=== PATIENT | female | born 1965 | race Caucasian/White ===

== ENCOUNTER 2024-04-20 00:48 | Inpatient (IN) | payer MEDICARE, OTHER ==
[2024-04-20 01:33] LABS: BASOPHILS ABSOLUTE AUTO 0.09 K/uL (0.00-0.10); BASOPHILS PERCENT AUTO 0.7 % (0.1-1.3); EOSINOPHILS ABSOLUTE AUTO 0.11 K/uL (0.00-0.40); EOSINOPHILS PERCENT AUTO 0.9 % (0.0-5.4); HEMATOCRIT 38.7 % (34.3-46.0); HEMOGLOBIN 13.6 g/dL (11.2-15.5); IMMATURE GRAN ABSOLUTE AUTO 0.07 K/uL (0.00-0.23); IMMATURE GRAN PERCENT AUTO 0.6 % (0.0-0.7); LYMPHOCYTES ABSOLUTE AUTO 2.26 K/uL (0.8-3.3); LYMPHOCYTES PERCENT AUTO 18.4 % (11.4-47.7); MEAN CORPUSCULAR HEMOGLOBIN 34.2 pg (31.6-35.5); MEAN CORPUSCULAR HGB CONC 35.1 g/dL (31.6-35.5); MEAN CORPUSCULAR VOLUME 97.2 fL (81.4-99.0); MONOCYTES ABSOLUTE AUTO 0.61 K/uL (0.20-0.90); NEUTROPHILS ABSOLUTE AUTO 9.17 K/uL (1.0-7.6); NEUTROPHILS PERCENT AUTO 74.4 % (40.0-78.1); PLATELET COUNT,PLT 231 K/uL (130-375); RED BLOOD CELL COUNT 3.98 M/uL (3.77-5.24); WHITE BLOOD CELL COUNT,WBC 12.3 K/uL (3.2-11.0)
[2024-04-20] MEDS: HYDROmorphone 0.5 MG/0.5 ML Syringe IVPUSH ONE (01:39)
[2024-04-20 01:44] LABS: CALCIUM 8.8 mg/dL (8.5-10.1); CREATININE 0.7 mg/dL (0.6-1.0); EST CRCL DRUG DOSING (CG) 63.46 mL/min; POTASSIUM,K 3.4 mmol/L (3.6-5.2)
[2024-04-20 01:47] LABS: ANION GAP 16.4 mmol/L (5.0-14.0)
[2024-04-20] MEDS: fentaNYL 100 MCG/2 ML SDV IVPUSH ONE (02:47)
[2024-04-20] MEDS ORDERED: Bisacodyl 5 MG Tab PO PRN (03:23)
[2024-04-20] MEDS ORDERED: Ondansetron 4 MG/2 ML SDV IV PRN (03:23)
[2024-04-20] MEDS ORDERED: Naloxone 0.4 MG/ML SDV IVPUSH PRN (03:23)
[2024-04-20] MEDS ORDERED: Pantoprazole 40 MG Vial IVPUSH SCH (03:23)
[2024-04-20] MEDS: HYDROmorphone 1 MG/ML Syringe IVPUSH PRN (03:52)
[2024-04-20] MEDS: Sodium Chloride 0.9% 1,000 ML IV SCH (03:52)
[2024-04-20] MEDS: Saliva Substitute Oral Spray 120 ML Bottle MUCMEM PRN (04:27)
[2024-04-20] MEDS: Sodium Chloride 0.9% 50 ML ONE (05:58)
[2024-04-20] MEDS: ceFAZolin 1 GM Vial ONE (05:58)
[2024-04-20] MEDS: ceFAZolin 1 GM in Premix Bag 1 BAG IV SCH (05:58)
[2024-04-20] MEDS: Pantoprazole 40 MG Vial IVPUSH ONE (07:55)
[2024-04-20] MEDS ORDERED: HYDROmorphone 1 MG/ML Syringe IVPUSH PRN (10:44)
[2024-04-20] MEDS: LORazepam 2 MG/ML SDV IV PRN (12:10)
[2024-04-20] MEDS ORDERED: fentaNYL 250 MCG/5 ML SDV ONE (14:42)
[2024-04-20] MEDS ORDERED: Rocuronium 50 MG/5 ML Vial ONE (14:42)
[2024-04-20] MEDS ORDERED: Propofol 200 MG/20 ML SDV ONE (14:42)
[2024-04-20] MEDS ORDERED: Dexamethasone 4 MG/ML SDV ONE (14:42)
[2024-04-20] MEDS ORDERED: Succinylcholine 200 MG/10 ML MDV ONE (14:42)
[2024-04-20] MEDS ORDERED: Glycopyrrolate 0.2 MG/ML 5 ML MDV ONE (14:42)
[2024-04-20] MEDS ORDERED: Ondansetron 4 MG/2 ML SDV ONE (14:42)
[2024-04-20] MEDS ORDERED: Neostigmine Methylsulfate 10 MG/10 ML MDV ONE (14:42)
[2024-04-20] MEDS: fentaNYL 50 MCG/ML SDV IVPUSH PRN (15:55)
[2024-04-20 16:06] LABS: APPEARANCE,URINE CLEAR (CLEAR); BILIRUBIN,URINE NEGATIVE (NEGATIVE); COLOR,URINE YELLOW (YELLOW); GLUCOSE,URINE NEGATIVE (NEGATIVE); KETONES,URINE TRACE mg/dL (NEGATIVE); LEUKOCYTE ESTERASE,URINE NEGATIVE (NEGATIVE); NITRITE,URINE NEGATIVE (NEGATIVE); OCCULT BLOOD,URINE NEGATIVE (NEGATIVE); PROTEIN,URINE NEGATIVE (NEGATIVE); UROBILINOGEN,URINE 0.2 EU/dL (0.2-1.0)
[2024-04-20 16:12] LABS: AMORPHOUS SEDIMENT,URINE NOT SEEN; BACTERIA,URINE RARE; EPITHELIAL CELLS,URINE RARE; MUCUS,URINE NOT SEEN; RBC,URINE 0-5 (0-5); WBC,URINE 0-5 (0-5)
[2024-04-20] MEDS ORDERED: Sugammadex Sodium 200 MG/2 ML VIAL IV ONE (17:10)
[2024-04-20] MEDS ORDERED: Lactated Ringers 1,000 ML ONE (17:10)
[2024-04-20] MEDS: Bupivacaine 0.5%/EPINEPHrine 1:200,000 50 ML MDV ONE (17:45)
[2024-04-20] MEDS: oxyCODONE 5 MG Tab PO PRN (19:59)
[2024-04-20] MEDS: Citalopram 20 MG Tab PO SCH (21:24)
[2024-04-20] MEDS: amLODIPine 5 MG Tab PO SCH (21:28)
[2024-04-20] MEDS: Losartan 25 MG Tab PO SCH (21:28)
[2024-04-21] MEDS: oxyCODONE 5 MG Tab PO PRN (03:57)
[2024-04-21 05:02] LABS: HEMATOCRIT 32.6 % (34.3-46.0); HEMOGLOBIN 11.1 g/dL (11.2-15.5); MEAN CORPUSCULAR HEMOGLOBIN 34.6 pg (31.6-35.5); MEAN CORPUSCULAR VOLUME 101.6 fL (81.4-99.0); RED BLOOD CELL COUNT 3.21 M/uL (3.77-5.24); WHITE BLOOD CELL COUNT,WBC 8.5 K/uL (3.2-11.0)
[2024-04-21 05:14] LABS: ANION GAP 11.3 mmol/L (5.0-14.0); CALCIUM 8.3 mg/dL (8.5-10.1); CREATININE 0.7 mg/dL (0.6-1.0); EST CRCL DRUG DOSING (CG) 68.08 mL/min; POTASSIUM,K 4.6 mmol/L (3.6-5.2)
[2024-04-21] MEDS: Docusate Sodium 100 MG Cap PO PRN (10:00)
[2024-04-21] MEDS: Acetaminophen 500 MG Tab PO PRN (13:09)
[2024-04-22 03:13] LABS: HEMATOCRIT 32.9 % (34.3-46.0); HEMOGLOBIN 11.2 g/dL (11.2-15.5); RED BLOOD CELL COUNT 3.29 M/uL (3.77-5.24); WHITE BLOOD CELL COUNT,WBC 9.3 K/uL (3.2-11.0)
[2024-04-22 03:30] LABS: CALCIUM 9.2 mg/dL (8.5-10.1); CREATININE 0.9 mg/dL (0.6-1.0); EST CRCL DRUG DOSING (CG) 52.95 mL/min
[2024-04-22 03:36] LABS: ANION GAP 8.1 mmol/L (5.0-14.0); POTASSIUM,K 6.1 mmol/L (3.6-5.2)
[2024-04-22] MEDS: Sodium Polystyrene Sulfonate 15 GM/60 ML Susp 60 ML Bot PO ONE (04:50)
[2024-04-22] MEDS ORDERED: Sodium Chloride 0.9% 10 ML Syringe IV PRN (07:54)
[2024-04-22] MEDS ORDERED: oxyCODONE 5 MG Tab PO PRN ×2 (19:39)
[2024-04-22] MEDS ORDERED: Ketorolac 15 MG/ML SDV IVPUSH PRN (19:42)
[2024-04-22] MEDS: Acetaminophen 500 MG Tab PO SCH (20:55)
[2024-04-23] MEDS: Acetaminophen 500 MG Tab PO SCH (08:37)
== END 2024-04-23 13:09 | disposition home or self-care (01) | DRG 482 ==
LOC: JP.ED 00:48 → JP.MS 02:32
PROVIDERS: ADMIT Internal Medicine; ATTEND Internal Medicine
PROC: 0QS636Z Reposition Right Upper Femur with Intramedullary Internal Fixation Device, Percutaneous Approach (ICD-10-PCS; principal; 2024-04-20 16:45)
DX: S72.144A Nondisplaced intertrochanteric fracture of right femur, initial encounter for closed fracture (principal); W01.0XXA Fall on same level from slipping, tripping and stumbling without subsequent striking against object, initial encounter; F17.210 Nicotine dependence, cigarettes, uncomplicated; F32.A Depression, unspecified; I10 Essential (primary) hypertension; F10.10 Alcohol abuse, uncomplicated; Y93.9 Activity, unspecified; Y92.009 Unspecified place in unspecified non-institutional (private) residence as the place of occurrence of the external cause; Z79.899 Other long term (current) drug therapy; Z88.8 Allergy status to other drugs, medicaments and biological substances; Z98.890 Other specified postprocedural states; Z98.1 Arthrodesis status; Z90.89 Acquired absence of other organs
CPT/HCPCS: 36415; 73502 ×2; 73700; 76377; 80048; 80307; 85025; 96374; 99285; J1171; 01230-QZ; 76000; 81001; 84132; 85027; 97110-GP; 97116-GP; 97161-GP; 97165-GO; 97530-GP; 99222; 99231; 99238; A9270-GY; C1713; C1776; J0330; J0689; J1100; J1596; J2060; J2405; J2470; J2704; J2710; J3010; J3480; J3490; J7030; J7120